=== PATIENT | male | born 1995 | race Caucasian/White ===

== ENCOUNTER 2017-03-30 12:43 | Emergency (ER) | payer BC, OTHER ==
[~2017-03-30] VITALS: Ht 175.3 cm; Wt 88.8 kg
[2017-03-30 12:58] VITALS: TEMP 36.5; O2SAT 99; Ht 175.3 cm; Wt 88.8 kg
--- NOTE | 2017-03-30 13:22 | EMERGENCY ROOM VISIT NOTE ---
History Report prepared by Dania: Germaine Bustillo Under the Supervision of: Dr. Madi Saini M.D. First contact with patient: 12:43 Chief Complaint: ALCOHOL OVERDOSE Stated Complaint: ALCOHOL OVERDOSE Nursing Triage Summary: per EMS pt arrives because he was unsteady and unable to walk the medic stated he blew a 244 he reports he was walking to the "student section of the game." "I wasnt with anyone I was trying to meet up with my friends." "I was born in [birth year] and it's [birth year] History of Present Illness The patient is a 21 year old male who presents to the Emergency Room with complaints of an episode of alcohol intoxication beginning just [employer]. Per EMS, the patient was found stumbling in the street and was unresponsive when found by the police. They report that he blew a 244 in the field per police. HPI limited secondary to intoxication. Source of History: EMS History Limited By: intoxication Onset: just [employer] Position: other (global) Quality: other (alcohol intoxication) Timing: other (episode) Review of Systems See HPI for pertinent positives & negatives. ROS limited secondary to intoxication. Past Medical & Surgical Medical Problems: (1) No Known Active Medical Problems Family History No pertinent family history stated. Social History Smoking Status: Never Smoker Marital Status: single Housing Status: lives with roommate Occupation Status: [employer] student Current/Historical Medications Unable to Obtain Active Prescriptions or Reported Meds Physical Exam Vital Signs Date Time Temp Pulse Resp B/P (MAP) Pulse Ox O2 Delivery O2 Flow Rate FiO2 03/30/17 15:40 75 16 124/76 99 Room Air 03/30/17 14:00 84 16 139/95 99 Room Air 03/30/17 13:07 83 03/30/17 12:58 36.5 69 16 120/80 99 Room Air 03/30/17 12:58 99 Room Air Physical Exam Vital signs reviewed. General: Odor of EtOH in the breath, disheveled 21-year-old male. No signs of trauma. HEENT: Mild scleral injection bilaterally, PERRLA, neck supple, dry mucous membranes. Cardiovascular: Regular rate and rhythm, no extra sounds. Pulmonary: Clear to auscultation bilaterally, normal work of breathing. Abdomen: Soft, nontender, nondistended, positive bowel sounds. Musculoskeletal: Upper and lower extremities atraumatic, no peripheral edema Skin: Warm, dry, no rash. Atraumatic. Neurologic: Patient is currently nonverbal. Medical Decision & Procedures Laboratory Results 03/30/17 13:32 Test 03/30/17 13:32 Anion Gap 6.0 mmol/L (3-11) Est Creatinine Clear Calc Drug Dose 135.3 ml/min Estimated GFR () 131.4 Estimated GFR (Non- 113.3 BUN/Creatinine Ratio 8.2 (10-20) Calcium Level 8.6 mg/dl (8.5-10.1) Ethyl Alcohol mg/dL 314.0 mg/dl (0-3) Labs reviewed by ED physician. Medications Administered Medications (Trade) Dose Ordered Sig/Justice Route Start Time Stop Time Status Last Admin Dose Admin Ondansetron HCl (Zofran Odt) 4 mg ONE STAT PO 03/30/17 13:31 03/30/17 13:43 DC 03/30/17 13:37 4 MG ED Course 1243: Past medical records reviewed. The patient was evaluated in room B4A. A complete history and physical examination was performed. 1331: Zofran 4mg IV. []: Upon reexamination the patient is doing ell. I discussed results and treatment plan with the patient. He verbalizes agreement and understanding. The patient is ready for discharge. Medical Decision The differential diagnosis of the patient's presentation includes alcohol ingestion, illicit drug use, trauma, and dehydration. This is a 21-year-old male who presents emergency department intoxicated. Patient is dry heaving and was brought in by ambulance. Patient was placed in the prone position and aspiration precautions were taken. He has an alcohol level of 320. After some time his alcohol intoxication did clear area and the patient wishes to be discharged and I stated he can be discharged care of a sober friend. I asked that the patient will like me to discuss this visit with his parents which he refused. I strongly suggested that the patient discussed the visit with his parents. I also reiterated to stop drinking alcohol tonight. Medication Reconcilliation Current Medication List: was personally reviewed by me Blood Pressure Screening Patient's blood pressure: Normal blood pressure Blood pressure disposition: Did not require urgent referral Impression Primary Impression: Alcohol intoxication Scribe Attestation The scribe's documentation has been prepared under my direction and personally reviewed by me in its entirety. I confirm that the note above accurately reflects all work, treatment, procedures, and medical decision making performed by me. Departure Information Dispostion Home / Self-Care Prescriptions Unable to Obtain Active Prescriptions or Reported Meds Referrals No Doctor, Assigned (PCP) Forms HOME CARE DOCUMENTATION FORM, IMPORTANT VISIT INFORMATION Patient Instructions Alcohol Intoxication - [facility], [facility], [place]: [employer] Students and Alcohol Related Visits , My [facility] Additional Instructions STRONGLY SUGGEST YOU DISCUSS THIS VISIT WITH YOUR PARENTS JOSUÉ .314 @ 1330 Sober at approx 130 AM AVOID ALCOHOL THE REST OF THE DAY You have been examined and treated today on an emergency basis only. This is not a substitute for, or an effort to provide, complete comprehensive medical care. It is impossible to recognize and treat all injuries or illnesses in a single emergency department visit. It is therefore important that you follow up closely with [facility]. Call as soon as possible for an appointment. Thank you for your time and consideration. I look forward to speaking with you again soon. Please don't hesitate to call us if you have any questions. Problem Qualifiers Primary Impression: Alcohol intoxication Complication of substance-induced condition: uncomplicated Qualified Codes: F10.920 - Alcohol use, unspecified with intoxication, uncomplicated
[2017-03-30] MEDS ORDERED: ONDANSETRON 4MG OD TAB PO STA (13:31)
[2017-03-30 14:09] LABS: BUN/CREATININE RATIO 8.2 (10-20); CALCIUM 8.6 mg/dl (8.5-10.1); CREATININE 0.96 mg/dl (0.60-1.40); POTASSIUM 3.3 mmol/L (3.5-5.1)
[2017-03-30 15:40] VITALS: BP 124/76; PULSE 75; O2SAT 99
== END 2017-03-30 16:48 | disposition home or self-care (01) ==
LOC: C.EDB 12:46
DX: F10.920 Alcohol use, unspecified with intoxication, uncomplicated (principal); Y90.8 Blood alcohol level of 240 mg/100 ml or more